=== PATIENT | male | born 1965 | race African-American/Black ===

== ENCOUNTER 2023-10-04 15:04 | Inpatient (IN) | payer OTHER ==
[2023-10-04 15:30] VITALS: BMI 47.5
[2023-10-04] MEDS ORDERED: IBUPROFEN 400 MG TABLET (FP) PO PRN (19:16)
[2023-10-04] MEDS ORDERED: LOPERAMIDE HCL 2 MG CAPSULE PO PRN (19:16)
[2023-10-04] MEDS ORDERED: NALOXONE HCL (KLOXXADO) 8 MG SPRAY NS PRN (19:16)
[2023-10-04] MEDS ORDERED: BENZOCAINE/MENTHOL (CHLORASEPTIC ) LOZENGE MM PRN (19:16)
[2023-10-04] MEDS ORDERED: POLYETHYLENE GLYCOL (HEALTHYLAX) 3350 17 GM PACKET PO PRN (19:16)
[2023-10-04] MEDS ORDERED: hydrOXYzine PAMOATE 25 MG CAPSULE (FP) PO PRN (19:16)
[2023-10-04] MEDS ORDERED: MAGNESIUM HYDROX 2400MG/30ML ORAL SUSPENSION 30 ML CUP PO PRN (19:16)
[2023-10-04] MEDS ORDERED: guaiFENesin 600 MG TABLET.ER (FP) PO PRN (19:16)
[2023-10-04] MEDS ORDERED: BENZONATATE 200 MG CAPSULE PO PRN (19:16)
[2023-10-04] MEDS ORDERED: ACETAMINOPHEN 325 MG TABLET (FP) PO PRN (19:16)
[2023-10-04] MEDS ORDERED: NALOXONE HCL 0.4 MG/ML VIAL IM PRN (19:16)
[2023-10-04] MEDS ORDERED: MAG HYDROX/AL HYDROX/SIMETH 30 ML UNIT-DOSE CUP PO PRN (19:16)
[2023-10-04] MEDS: MELATONIN 5 MG TABLETS PO SCH ×2 (23:10→23:18)
[2023-10-04] MEDS: THIAMINE HCL 100 MG TABLET (FP) PO SCH ×2 (23:10→23:19)
[2023-10-04] MEDS: IBUPROFEN 600 MG TABLET (FP) PO PRN (23:16)
[2023-10-05 06:54] VITALS: RESP 18; TEMP 97
[2023-10-05 07:25] VITALS: BP 107/63; PULSE 84
[2023-10-05] MEDS: IBUPROFEN 600 MG TABLET (FP) PO PRN (07:30)
[2023-10-05] MEDS ORDERED: PRENATAL VITAMINS W/ FOLIC ACID TABLET (FP) PO SCH (10:00)
[2023-10-05 10:47] LABS: HEMATOCRIT 42.2 % (35.4-49); HEMOGLOBIN 14.1 GM/dL (11.7-16.9); MCH 30.4 pg (25.7-33.7); MCHC 33.3 g/dl (32.0-35.9); MEAN CELL VOLUME 91.1 fl (80-96); MEAN PLT VOLUME 8.6 fl (7.5-11.1); PLATELET COUNT 253 10^3/uL (134-434); RBC 4.63 M/mm3 (4.00-5.60); WHITE BLOOD COUNT 6.5 K/mm3 (4.0-10.0)
[2023-10-05 10:55] LABS: CHLORIDE 106 mmol/L (98-107); POTASSIUM 3.9 mmol/L (3.5-5.1); SODIUM 139 mmol/L (136-145)
[2023-10-05 11:01] LABS: CALCIUM 8.9 mg/dL (8.5-10.1)
[2023-10-05 11:02] LABS: ALBUMIN 3.3 g/dl (3.4-5.0); ANION GAP 6 mmol/L (4-13); BLOOD UREA NITROGEN 15.2 mg/dL (7-18); CO2 27 mmol/L (21-32); GLUCOSE,RANDOM 170 mg/dL (74-106)
[2023-10-05 11:05] LABS: CREATININE 0.9 mg/dL (0.55-1.3); SGOT/AST 18 U/L (15-37); SGPT/ALT 21 U/L (13-61)
[2023-10-05 11:06] LABS: BILIRUBIN,TOTAL 0.3 mg/dL (0.2-1)
[2023-10-05 11:07] LABS: TOT PROT 6.6 g/dl (6.4-8.2)
[2023-10-05 11:08] LABS: ALK PHOS 76 U/L (45-117)
[2023-10-05 11:27] LABS: SYPHILIS W/ RPR CONF NON-REACTIVE (NONREACTIVE)
[2023-10-05] MEDS ORDERED: TUBERCULIN PPD 5 TU/0.1ML VIAL ID ONE (12:11)
== END 2023-10-05 13:00 | disposition left against medical advice (07) | DRG 770 ==
LOC: YASAS 15:04 → Y5N 22:16
PROVIDERS: ADMIT Allergy & Immunology; ATTEND Psychiatry & Neurology Pain Medicine
PROC: HZ42ZZZ Group Counseling for Substance Abuse Treatment, Cognitive-Behavioral (ICD-10-PCS; principal; 2023-10-04)
DX: F10.20 Alcohol dependence, uncomplicated (principal); F17.210 Nicotine dependence, cigarettes, uncomplicated; E11.9 Type 2 diabetes mellitus without complications; M54.40 Lumbago with sciatica, unspecified side; G89.29 Other chronic pain; Z86.79 Personal history of other diseases of the circulatory system
CPT/HCPCS: 36415; 80053; 80307; 82962; 85027; 86780; 86803; 87635; 93005; 93010